=== PATIENT | female | born 1990 | race Hispanic/Latino ===

== ENCOUNTER 2017-01-19 18:00 | Emergency (ER) | payer SELFPAY ==
[2017-01-19] MEDS ORDERED: Ondansetron HCl/PF 4 MG/2 ML Vial ONE ×2 (18:37→18:38)
[2017-01-19 18:39] LABS: #Basophils 0.1 thou/uL (0.0-0.2); #Eosinphils 0.1 thou/uL (0.0-0.7); #Lymphocytes 1.7 thou/uL (1.20-3.40); #Monocytes 0.6 thou/uL (0.11-0.59); #Neutrophils 4.7 thou/uL (1.40-6.50); %Basophils 0.7 % (0.0-1.0); %Eosinophils 1.1 % (0.0-10.0); %Lymphocytes 23.2 % (21.0-51.0); %Monocytes 9.1 % (0.0-10.0); Hematocrit 38.6 % (36.0-47.0); Mean Platelet Volume 6.7 fL (7.4-10.4); Red Blood Cell (RBC) Count 4.45 mill/uL (4.20-5.40); White Blood Cell (WBC) Count 7.1 thou/uL (4.8-10.8)
[2017-01-19 18:46] LABS: ALT (SGPT) 41 U/L (8-55); AST (SGOT) 33 U/L (5-34); Alkaline Phosphatase 82 U/L (40-150); Anion Gap 12 mmol/L (10-20); BUN (Urea Nitrogen) 7 mg/dL (7.0-18.7); Bilirubin, Total 0.3 mg/dL (0.2-1.2); Calc. Creatinine Clearance 0 mL/min (70-130); Calcium 9.1 mg/dL (7.8-10.44); Carbon Dioxide 27 mmol/L (22-29); Chloride 102 mmol/L (98-107); Estimated GFR-MDRD Greater than 90; Globulin 2.8 g/dL (2.4-3.5); Lipase 26 U/L (8-78); Protein, Total 7.2 g/dL (6.0-8.3)
[2017-01-19 20:38] LABS: Bilirubin Small (Negative); Blood, Urine Large (Negative); Glucose, Urine (Dipstick) Negative (Negative); Ketone, Urine Negative (Negative); Nitrite Positive (Negative); Protein, Urine (Dipstick) Trace mg/dL (Neg-Trace)
[2017-01-19 20:46] LABS: Bacteria/HPF 4+ HPF (None Seen); Hyaline Casts/LPF 4-6 HYALINE CAST LPF (0-3 Hyaline); RBC/HPF GREATER THAN 50-TNTC HPF (0-3); Squamous Epithelial 0-3 HPF (0-3); WBC/HPF 21-50 HPF (0-3)
== END 2017-01-19 22:09 | disposition home or self-care (01) ==
LOC: ERS 18:00
DX: N39.0 Urinary tract infection, site not specified (principal); D64.9 Anemia, unspecified
CPT/HCPCS: 80053; 81003; 81015; 83690; 84703; 85025; 87081; 87430; 96361; 96374; J2405

== ENCOUNTER 2017-02-03 21:12 | Emergency (ER) | payer SELFPAY ==
[2017-02-03 23:48] LABS: Bilirubin Negative (Negative); Blood, Urine Negative (Negative); Glucose, Urine (Dipstick) Negative (Negative); Ketone, Urine Negative (Negative); Nitrite Positive (Negative); Protein, Urine (Dipstick) Negative (Neg-Trace)
[2017-02-03 23:51] LABS: Bacteria/HPF 4+ HPF (None Seen); Hyaline Casts/LPF 0-3 HYALINE CAST LPF (0-3 Hyaline)
[2017-02-04] MEDS ORDERED: Ondansetron ODT 4 MG TAB ONE (00:24)
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
== END 2017-02-04 00:36 | disposition home or self-care (01) ==
LOC: ERS 21:12
DX: R05 Cough (principal); R11.2 Nausea with vomiting, unspecified; R09.81 Nasal congestion; D50.9 Iron deficiency anemia, unspecified
CPT/HCPCS: 71020; 81003; 81015; 81025; Q0162

== ENCOUNTER 2018-01-08 09:11 | Emergency (ER) | payer SELFPAY ==
[2018-01-08 09:54] LABS: #Basophils 0.1 thou/uL (0.0-0.2); #Eosinphils 0.1 thou/uL (0.0-0.7); #Lymphocytes 1.5 thou/uL (1.20-3.40); #Monocytes 0.4 thou/uL (0.11-0.59); #Neutrophils 3.7 thou/uL (1.40-6.50); %Basophils 1.3 % (0.0-1.0); %Eosinophils 1.2 % (0.0-10.0); %Lymphocytes 26.7 % (21.0-51.0); %Monocytes 6.5 % (0.0-10.0); %Neutrophils 64.2 % (42.0-75.0); Hemoglobin 13.4 g/dL (12.0-16.0); Mean Corpuscular HGB CONC 33.7 g/dL (32.0-36.0); Mean Corpuscular Hemoglobin 28.8 pg (27.0-31.0); Mean Corpuscular Volume 85.2 fL (78.0-98.0); Mean Platelet Volume 6.8 fL (7.4-10.4); Platelet Count 325 thou/uL (130-400); RBC Distribution Width 11.8 % (11.5-14.5); Red Blood Cell (RBC) Count 4.67 mill/uL (4.20-5.40); White Blood Cell (WBC) Count 5.7 thou/uL (4.8-10.8)
[2018-01-08 10:19] LABS: Bilirubin Negative (Negative); Blood, Urine Negative (Negative); Glucose, Urine (Dipstick) Negative (Negative); Leukocyte Negative (Negative); Nitrite Positive (Negative); Protein, Urine (Dipstick) Negative (Neg-Trace); Specific Gravity, Urine 1.025 (1.005-1.030); Urobilinogen 0.2 mg/dL (0.2-1.0); pH, Urine 6.5 (5.0-9.0)
[2018-01-08 10:21] LABS: Bacteria/HPF 4+ HPF (None Seen); Clarity Hazy (Clear); Hyaline Casts/LPF 0-3 HYALINE CAST LPF (0-3 Hyaline); Pathc Cast-AUWi Flag 0.87 (0-2.49)
[2018-01-08 10:21] LABS: ALT (SGPT) 38 U/L (8-55); AST (SGOT) 26 U/L (5-34); Albumin 4.6 g/dL (3.5-5.0); Alkaline Phosphatase 85 U/L (40-150); Anion Gap 12 mmol/L (10-20); BUN (Urea Nitrogen) 12 mg/dL (7.0-18.7); Bilirubin, Total Less than 0.2 mg/dL (0.2-1.2); Calc. Creatinine Clearance 0 mL/min (70-130); Calcium 9.5 mg/dL (7.8-10.44); Carbon Dioxide 27 mmol/L (22-29); Chloride 104 mmol/L (98-107); Estimated GFR-MDRD 79; Globulin 2.9 g/dL (2.4-3.5); Glucose 120 mg/dL (70-105); Lipase 34 U/L (8-78); Protein, Total 7.5 g/dL (6.0-8.3); Sodium 139 mmol/L (136-145)
[2018-01-08 10:24] LABS: Pregnancy Test - Urine (BHCG) Negative (Negative); Pregu Control Background? CLEAR/WHITE (CLR/WHITE); Pregu Control Bar Appear? YES (CONTROL BAR); Specific Gravity 1.025 (1.002-1.036)
[2018-01-08 10:31] LABS: RBC/HPF None Seen HPF (0-3)
== END 2018-01-08 11:30 | disposition home or self-care (01) ==
LOC: ERS 09:11
DX: N39.0 Urinary tract infection, site not specified (principal); D50.9 Iron deficiency anemia, unspecified
CPT/HCPCS: 36415; 80053; 81003; 81015; 81025; 83690; 84702; 85025

== ENCOUNTER 2019-07-15 19:11 | Emergency (ER) | payer OTHER, SELFPAY ==
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
== END 2019-07-15 21:41 | disposition home or self-care (01) ==
LOC: ERS 19:11
DX: S00.03XA Contusion of scalp, initial encounter (principal); S90.31XA Contusion of right foot, initial encounter; D50.9 Iron deficiency anemia, unspecified; Z87.891 Personal history of nicotine dependence; V89.2XXA Person injured in unspecified motor-vehicle accident, traffic, initial encounter
CPT/HCPCS: 70450

== ENCOUNTER 2020-06-17 17:30 | Emergency (ER) | payer SELFPAY ==
[2020-06-17 19:30] LABS: Bacteria/HPF 2+ HPF (None Seen); Bilirubin Negative (Negative); Blood, Urine Negative (Negative); Clarity Turbid (Clear); Glucose, Urine (Dipstick) Normal (Negative); Ketone, Urine Negative (Negative); Leukocyte Negative Leu/uL (Negative); Nitrite 1+ (Negative); Protein, Urine (Dipstick) 20 mg/dL (Neg-Trace); Specific Gravity, Urine 1.026 (1.002-1.036); pH, Urine 5.5 (5.0-9.0)
[2020-06-17 19:36] LABS: Pregnancy Test - Urine (BHCG) Negative (Negative); Pregu Control Background? CLEAR/WHITE (CLR/WHITE); Pregu Control Bar Appear? YES (CONTROL BAR); Specific Gravity 1.023 (1.002-1.036)
[2020-06-17 19:38] LABS: Calcium Oxalate Crystals 2+ HPF (None Seen)
[2020-06-20 23:03] LABS: Chlamydia by PCR Not Detected (NotDetected); GC by PCR Not Detected (NotDetected)
== END 2020-06-17 21:57 | disposition home or self-care (01) ==
LOC: ERS 17:30
DX: T83.32XA Displacement of intrauterine contraceptive device, initial encounter (principal); N39.0 Urinary tract infection, site not specified; D50.9 Iron deficiency anemia, unspecified; F17.210 Nicotine dependence, cigarettes, uncomplicated
CPT/HCPCS: 76856; 81003; 81015; 81025; 87077; 87086; 87186; 87480; 87491; 87510; 87591; 87660

== ENCOUNTER 2020-12-13 08:55 | Inpatient (IN) | payer SELFPAY ==
[2020-12-13] MEDS ORDERED: Mag-Al 1200 mg/1200 mg/30 ML UDCUP ONE (09:26)
[2020-12-13] MEDS ORDERED: Ondansetron ODT 4 MG TAB ONE (09:26)
[2020-12-13] MEDS ORDERED: Ondansetron PF 4 MG/2 ML Vial ONE ×2 (09:26→13:18)
[2020-12-13] MEDS ORDERED: Lidocaine Viscous Sol 2% 15 ml UD Cup ONE (09:26)
[2020-12-13 09:50] LABS: #Lymphocytes 1.2 thou/uL (1.20-3.40); #Monocytes 0.5 thou/uL (0.11-0.59); #Neutrophils 9.1 thou/uL (1.40-6.50); %Basophils 0.2 % (0.0-1.0); %Eosinophils 0.3 % (0.0-10.0); %Lymphocytes 10.8 % (21.0-51.0); %Monocytes 4.5 % (0.0-10.0); %Neutrophils 84.1 % (42.0-75.0); Hemoglobin 13.9 g/dL (12.0-16.0); Mean Corpuscular HGB CONC 33.5 g/dL (32.0-36.0); Mean Corpuscular Volume 86.7 fL (78.0-98.0); Mean Platelet Volume 7.1 fL (7.4-10.4); Platelet Count 428 thou/uL (130-400); RBC Distribution Width 11.9 % (11.5-14.5); Red Blood Cell (RBC) Count 4.78 mill/uL (4.20-5.40); White Blood Cell (WBC) Count 10.8 thou/uL (4.8-10.8)
[2020-12-13 10:12] LABS: Anion Gap 16 mmol/L (10-20); BUN (Urea Nitrogen) 10 mg/dL (7.0-18.7); Calc. Creatinine Clearance 0 mL/min (70-130); Carbon Dioxide 24 mmol/L (22-29); Chloride 103 mmol/L (98-107); Potassium 3.7 mmol/L (3.5-5.1); Sodium 139 mmol/L (136-145)
[2020-12-13 10:13] LABS: ALT (SGPT) 520 U/L (8-55); AST (SGOT) 700 U/L (5-34); Alkaline Phosphatase 212 U/L (40-110); Bilirubin, Total 2.5 mg/dL (0.2-1.2); Calcium 9.1 mg/dL (7.8-10.44); Globulin 2.2 g/dL (2.4-3.5); Glucose 290 mg/dL (70-105); Protein, Total 6.2 g/dL (6.0-8.3)
[2020-12-13 10:29] LABS: Lipase 5680 U/L (8-78)
[2020-12-13] MEDS ORDERED: Morphine 4 MG/ML VIAL ONE ×2 (10:34→11:24)
[2020-12-13] MEDS ORDERED: Levofloxacin 500 mg/D5W 100 ml Premix Bag ONE (11:23)
[2020-12-13] MEDS ORDERED: Ketorolac Tromethamine 30 MG/ML VIAL ONE (11:24)
[2020-12-13] MEDS ORDERED: hydrALAZINE 20 MG/ML VIAL SLOW IVP PRN (11:40)
[2020-12-13] MEDS ORDERED: Ondansetron ODT 4 MG TAB PO PRN (11:40)
[2020-12-13] MEDS ORDERED: Lactated Ringer's 1,000 ML IV SCH (11:45)
[2020-12-13] MEDS ORDERED: Ketorolac Tromethamine 30 MG/ML VIAL IVP SCH (11:45)
[2020-12-13] MEDS ORDERED: Scopolamine 1.5 mg/72 hour Patch TD SCH (12:00)
[2020-12-13 13:54] LABS: SARS-CoV-2 NAA Rapid Test Not Detected (NotDetected)
[2020-12-13 14:25] VITALS: BMI 34.6
[2020-12-13] MEDS ORDERED: Morphine 4 MG/ML VIAL SLOW IVP PRN (15:09)
[2020-12-13] MEDS: Lactated Ringer's 1,000 ML IV SCH ×3 (16:00→22:10)
[2020-12-13] MEDS: Ketorolac Tromethamine 30 MG/ML VIAL IVP PRN ×2 (16:05→22:03)
[2020-12-13] MEDS: Morphine 4 MG/ML VIAL SLOW IVP PRN ×2 (17:33→22:04)
[2020-12-13] MEDS: Ondansetron PF 4 MG/2 ML Vial IVP PRN (17:35)
[2020-12-13] MEDS ORDERED: Famotidine 20 MG TAB PO SCH (21:00)
[2020-12-13] MEDS ORDERED: Enoxaparin Sodium 40 MG/0.4 ML SYRINGE SC SCH (21:00)
[2020-12-13] MEDS: Famotidine/PF 20 mg/2ml Vial SLOW IVP SCH (22:03)
[2020-12-14] MEDS: Lactated Ringer's 1,000 ML IV SCH (05:59)
[2020-12-14 06:21] LABS: #Lymphocytes 0.9 thou/uL (1.20-3.40); #Monocytes 0.6 thou/uL (0.11-0.59); #Neutrophils 9.1 thou/uL (1.40-6.50); %Basophils 0.3 % (0.0-1.0); %Eosinophils 0.2 % (0.0-10.0); %Lymphocytes 8.5 % (21.0-51.0); %Monocytes 5.4 % (0.0-10.0); %Neutrophils 85.6 % (42.0-75.0); Hemoglobin 13.3 g/dL (12.0-16.0); Mean Corpuscular HGB CONC 33.3 g/dL (32.0-36.0); Mean Corpuscular Volume 87.1 fL (78.0-98.0); Platelet Count 338 thou/uL (130-400); RBC Distribution Width 12.1 % (11.5-14.5); Red Blood Cell (RBC) Count 4.61 mill/uL (4.20-5.40); White Blood Cell (WBC) Count 10.6 thou/uL (4.8-10.8)
[2020-12-14 06:28] LABS: ALT (SGPT) 341 U/L (8-55); AST (SGOT) 165 U/L (5-34); Albumin 3.2 g/dL (3.5-5.0); Alkaline Phosphatase 181 U/L (40-110); Anion Gap 10 mmol/L (10-20); BUN (Urea Nitrogen) 9 mg/dL (7.0-18.7); Calc. Creatinine Clearance 143 mL/min (70-130); Calcium 8.3 mg/dL (7.8-10.44); Carbon Dioxide 27 mmol/L (22-29); Chloride 106 mmol/L (98-107); Globulin 1.9 g/dL (2.4-3.5); Glucose 102 mg/dL (70-105); Potassium 3.7 mmol/L (3.5-5.1); Protein, Total 5.1 g/dL (6.0-8.3); Sodium 139 mmol/L (136-145)
[2020-12-14 06:41] LABS: Lipase 2298 U/L (8-78)
[2020-12-14] MEDS: Ondansetron PF 4 MG/2 ML Vial IVP PRN (07:12)
[2020-12-14] MEDS: Ketorolac Tromethamine 30 MG/ML VIAL IVP PRN (07:12)
[2020-12-14] MEDS: Morphine 4 MG/ML VIAL SLOW IVP PRN (07:13)
[2020-12-14] MEDS ORDERED: Lidocaine 1% w/Epinephrine 1:100K 20 ML VIAL ONE (07:19)
[2020-12-14] MEDS ORDERED: Bupivacaine 0.25% HCL 30 ML VIAL ONE (07:19)
[2020-12-14] MEDS ORDERED: Iothalamate Meglumine 60% 50 ML VIAL FS ONE (07:19)
[2020-12-14] MEDS ORDERED: Ketamine 50 MG/ML (10ML VIAL) ONE (07:56)
[2020-12-14] MEDS ORDERED: Midazolam HCl 2 mg/2 ml Vial ONE (07:56)
[2020-12-14] MEDS ORDERED: Fentanyl 100 MCG/2 ML VIAL ONE ×2 (07:56→09:39)
[2020-12-14] MEDS ORDERED: Phenylephrine 10 MG/ML VIAL ONE (07:56)
[2020-12-14] MEDS ORDERED: Dexmedetomidine 200 MCG/2 ML VIAL ONE (07:56)
[2020-12-14] MEDS ORDERED: Glycopyrrolate 0.2 MG/ML 5 ML SYRINGE ONE (08:25)
[2020-12-14] MEDS ORDERED: Succinylcholine 200 MG/10 ml SYRINGE FS ONE (08:25)
[2020-12-14] MEDS ORDERED: Ondansetron PF 4 MG/2 ML Vial ONE (08:25)
[2020-12-14] MEDS ORDERED: PROPOFOL 200 MG/20 ML VIAL ONE (08:25)
[2020-12-14] MEDS ORDERED: Lidocaine 1% PF 5 ML VIAL ONE (08:25)
[2020-12-14] MEDS ORDERED: PHENYLEPHRINE-NS 100 MCG/ML 10 ML SYRINGE ONE (08:25)
[2020-12-14] MEDS ORDERED: Rocuronium Bromide 10 MG/ML (10ML VIAL) ONE (08:25)
[2020-12-14] MEDS ORDERED: Esmolol 100 MG/10 ML VIAL ONE (08:25)
[2020-12-14] MEDS ORDERED: Dexamethasone 20 MG/5 ML VIAL ONE (08:25)
[2020-12-14] MEDS: Famotidine/PF 20 mg/2ml Vial SLOW IVP SCH (08:32)
[2020-12-14] MEDS ORDERED: Promethazine HCl 25 MG/ML VIAL IVPB PRN (09:32)
[2020-12-14] MEDS ORDERED: HYDROmorphone 2 MG/ML VIAL SLOW IVP PRN (09:32)
[2020-12-14] MEDS ORDERED: Promethazine HCl 25 MG/ML VIAL IM PRN (09:32)
[2020-12-14] MEDS ORDERED: traMADol HCl 50 MG TAB PO PRN (09:53)
[2020-12-14] MEDS ORDERED: Ibuprofen 600 MG TAB PO PRN (09:53)
[2020-12-14] MEDS ORDERED: Acetaminophen 500 MG TAB PO PRN (09:53)
[2020-12-14] MEDS ORDERED: Lactated Ringer's 1,000 ML IV SCH (09:55)
[2020-12-14 17:14] VITALS: BP 105/71; TEMP 98.3
== END 2020-12-14 17:40 | disposition home or self-care (01) | DRG 418 ==
LOC: ERS 08:55 → SURG A 11:40
PROVIDERS: ADMIT Specialist; ATTEND Specialist
PROC: 0FT44ZZ Resection of Gallbladder, Percutaneous Endoscopic Approach (ICD-10-PCS; principal; 2020-12-14)
PROC: BF131ZZ Fluoroscopy of Gallbladder and Bile Ducts using Low Osmolar Contrast (ICD-10-PCS; 2020-12-14)
DX: K85.90 Acute pancreatitis without necrosis or infection, unspecified (principal); K80.10 Calculus of gallbladder with chronic cholecystitis without obstruction; Z88.1 Allergy status to other antibiotic agents; Z88.0 Allergy status to penicillin
CPT/HCPCS: 36415; 47531; 47532; 76705; 80053; 82150; 83690; 85025; 88304; 96365; 96372; 96375; 96376; J0500; J1100; J1610; J1650; J1885; J1956; J2250; J2270; J2370; J2405; J2704; J3010; J7120; Q0162; Q9961; S0020; S0028; U0002

== ENCOUNTER 2021-02-08 20:59 | Emergency (ER) | payer SELFPAY ==
[2021-02-08] MEDS ORDERED: Acetaminophen 500 MG TAB ONE (22:46)
== END 2021-02-08 22:48 | disposition home or self-care (01) ==
LOC: ERS 20:59
DX: S93.502A Unspecified sprain of left great toe, initial encounter (principal); W22.8XXA Striking against or struck by other objects, initial encounter; D50.9 Iron deficiency anemia, unspecified

== ENCOUNTER 2021-03-13 13:06 | Emergency (ER) | payer SELFPAY ==
[2021-03-13 20:32] LABS: SARS-CoV-2 PCR by NAA DETECTED (NotDetected)
== END 2021-03-13 13:40 | disposition home or self-care (01) ==
LOC: ERS 13:06
DX: U07.1 COVID-19 (principal); D50.9 Iron deficiency anemia, unspecified
CPT/HCPCS: 99283; U0003; U0005

== ENCOUNTER 2021-06-17 23:52 | Emergency (ER) | payer OTHER | END 2021-06-18 00:46 | disposition home or self-care (01) | LOC: ERS 23:52 | DX: K03.81 Cracked tooth (principal); K02.9 Dental caries, unspecified; D50.9 Iron deficiency anemia, unspecified | CPT/HCPCS: 99283 ==

== ENCOUNTER 2021-08-19 18:21 | Emergency (ER) | payer OTHER, SELFPAY ==
[2021-08-19] MEDS ORDERED: Lidocaine 1% w/Epinephrine 1:100K 20 ML VIAL ONE (19:49)
[2021-08-19] MEDS ORDERED: Boostrix 0.5 ML (Tdap) VIAL ONE (21:38)
== END 2021-08-19 22:15 | disposition home or self-care (01) ==
LOC: ERS 18:21
DX: S81.012A Laceration without foreign body, left knee, initial encounter (principal); F17.290 Nicotine dependence, other tobacco product, uncomplicated; V87.8XXA Person injured in other specified noncollision transport accidents involving motor vehicle (traffic), initial encounter
CPT/HCPCS: 12002; 90471; 90715

== ENCOUNTER 2021-08-25 23:17 | Emergency (ER) | payer SELFPAY | END 2021-08-26 02:09 | disposition home or self-care (01) | LOC: ERS 23:17 | DX: L03.115 Cellulitis of right lower limb (principal) | CPT/HCPCS: 99282 ==

== ENCOUNTER 2021-09-02 18:29 | Emergency (ER) | payer SELFPAY | END 2021-09-02 19:00 | disposition home or self-care (01) | LOC: ERS 18:29 | DX: S81.012D Laceration without foreign body, left knee, subsequent encounter (principal); Z87.891 Personal history of nicotine dependence; Z79.899 Other long term (current) drug therapy; X58.XXXD Exposure to other specified factors, subsequent encounter ==

== ENCOUNTER 2021-09-10 18:11 | Emergency (ER) | payer SELFPAY | END 2021-09-10 18:50 | disposition home or self-care (01) | LOC: ERS 18:11 | DX: S81.012D Laceration without foreign body, left knee, subsequent encounter (principal) ==

== ENCOUNTER 2022-01-03 16:21 | Emergency (ER) | payer SELFPAY ==
[2022-01-03] MEDS ORDERED: Acetaminophen 500 MG TAB ONE (17:36)
[2022-01-03] MEDS ORDERED: Ibuprofen 800 MG TAB ONE (18:33)
== END 2022-01-03 19:02 | disposition home or self-care (01) ==
LOC: ERS 16:21
DX: B34.9 Viral infection, unspecified (principal); Z87.891 Personal history of nicotine dependence
CPT/HCPCS: 87804; 99283

== ENCOUNTER 2022-02-09 11:05 | Emergency (ER) | payer SELFPAY ==
[2022-02-09] MEDS ORDERED: Ondansetron ODT 4 MG TAB ONE (11:51)
[2022-02-09 12:42] LABS: SARS-CoV-2 NAA Rapid Test Not Detected (NotDetected)
[2022-02-09 13:21] LABS: Pregnancy Test - Urine (BHCG) Negative (Negative); Pregu Control Background? CLEAR/WHITE (CLR/WHITE); Pregu Control Bar Appear? YES (CONTROL BAR); Specific Gravity 1.015 (1.002-1.036)
== END 2022-02-09 14:22 | disposition home or self-care (01) ==
LOC: ERS 11:05
DX: J20.9 Acute bronchitis, unspecified (principal); J45.909 Unspecified asthma, uncomplicated; Z20.822 Contact with and (suspected) exposure to COVID-19; Z87.891 Personal history of nicotine dependence
CPT/HCPCS: 71045; 81025; Q0162

== ENCOUNTER 2022-09-19 04:10 | Emergency (ER) | payer SELFPAY ==
[2022-09-19] MEDS ORDERED: Ibuprofen 800 MG TAB ONE (04:48)
== END 2022-09-19 04:55 | disposition home or self-care (01) ==
LOC: ERS 04:10
DX: S90.111A Contusion of right great toe without damage to nail, initial encounter (principal); W22.09XA Striking against other stationary object, initial encounter; Z87.891 Personal history of nicotine dependence

== ENCOUNTER 2022-10-15 15:01 | Emergency (ER) | payer BC, SELFPAY ==
[~2022-10-15 15:01] MED LIST: Iopamidol-370 76% 500 ML MDV (1 ML CHARGE) ONE
[2022-10-15 15:48] LABS: #Eosinphils 0.1 thou/uL (0.0-0.7); #Monocytes 0.3 thou/uL (0.11-0.59); %Basophils 0.4 % (0.0-1.0); %Eosinophils 1.6 % (0.0-10.0); %Lymphocytes 18.5 % (21.0-51.0); %Monocytes 4.9 % (0.0-10.0); Hematocrit 37.6 % (36.0-47.0); Hemoglobin 12.5 g/dL (12.0-16.0); Mean Corpuscular HGB CONC 33.2 g/dL (32.0-36.0); Mean Corpuscular Hemoglobin 28.5 pg (27.0-31.0); Mean Corpuscular Volume 85.8 fl (78.0-98.0); Mean Platelet Volume 9.2 fL (7.4-10.4); Platelet Count 339 10x3/uL (130-400); RBC Distribution Width 13.4 % (11.5-14.5); Red Blood Cell (RBC) Count 4.38 mill/uL (4.20-5.40); White Blood Cell (WBC) Count 6.7 10x3/uL (4.8-10.8)
[2022-10-15 15:55] LABS: BHCG - Serum Negative (NEGATIVE); Pregs Control Background? CLEAR/WHITE (CLR/WHITE); Pregs Control Bar Appear? YES (CONTROL BAR)
[2022-10-15 16:12] LABS: ALT (SGPT) 18 U/L (8-55); AST (SGOT) 16 U/L (5-34); Albumin 4.1 g/dL (3.5-5.0); Alkaline Phosphatase 85 U/L (40-110); Anion Gap 13 mmol/L (10-20); BUN (Urea Nitrogen) 7 mg/dL (7.0-18.7); Bilirubin, Total 0.2 mg/dL (0.2-1.2); Calc. Creatinine Clearance 0 mL/min (70-130); Calcium 8.7 mg/dL (7.8-10.44); Carbon Dioxide 24 mmol/L (22-29); Chloride 106 mmol/L (98-107); Estimated GFR 104; Globulin 2.3 g/dL (2.4-3.5); Glucose 112 mg/dL (70-105); Lipase 27 U/L (8-78); Potassium 3.4 mmol/L (3.5-5.1); Protein, Total 6.4 g/dL (6.0-8.3); Sodium 140 mmol/L (136-145)
[2022-10-15] MEDS ORDERED: Ketorolac Tromethamine 30 MG/ML VIAL ONE (16:15)
[2022-10-15 16:45] LABS: Bacteria/HPF 2+ HPF (None Seen); Bilirubin Negative (Negative); Blood, Urine Negative (Negative); CAUTI Indications for Culture Pelvic or flank pain; Clarity Turbid (Clear); Glucose, Urine (Dipstick) Normal (Negative); Ketone, Urine Negative (Negative); Leukocyte 500 Leu/uL (Negative); Nitrite 2+ (Negative); Protein, Urine (Dipstick) 30 mg/dL (Neg-Trace); RBC/HPF 0-3 HPF (0-3); Specific Gravity, Urine 1.024 (1.002-1.036); Squamous Epithelial 0-3 HPF (0-3); Urobilinogen Normal mg/dL (Less than 2); pH, Urine 6.5 (5.0-9.0)
[2022-10-15 16:51] LABS: Urine Culture Reflex Yes Yes
== END 2022-10-15 17:41 | disposition home or self-care (01) ==
LOC: ERS 15:01
DX: N39.0 Urinary tract infection, site not specified (principal); Z87.891 Personal history of nicotine dependence
CPT/HCPCS: 36415; 74177; 80053; 81001; 83690; 84703; 85025; 87077; 87086; 87186; 96374; J1885; Q9967

== ENCOUNTER 2022-10-19 23:20 | Emergency (ER) | payer BC ==
[2022-10-19] MEDS ORDERED: Acetaminophen 500 MG TAB ONE (23:57)
[2022-10-20 00:16] LABS: #Eosinphils 0.1 thou/uL (0.0-0.7); #Monocytes 0.5 thou/uL (0.11-0.59); #Neutrophils 4.7 thou/uL (1.40-6.50); %Basophils 0.3 % (0.0-1.0); %Eosinophils 1.5 % (0.0-10.0); %Lymphocytes 22.6 % (21.0-51.0); %Monocytes 6.5 % (0.0-10.0); %Neutrophils 68.7 % (42.0-75.0); Hematocrit 38.4 % (36.0-47.0); Hemoglobin 12.6 g/dL (12.0-16.0); Mean Corpuscular HGB CONC 32.8 g/dL (32.0-36.0); Mean Corpuscular Hemoglobin 28.3 pg (27.0-31.0); Mean Corpuscular Volume 86.3 fl (78.0-98.0); Mean Platelet Volume 9.1 fL (7.4-10.4); Platelet Count 332 10x3/uL (130-400); RBC Distribution Width 13.6 % (11.5-14.5); Red Blood Cell (RBC) Count 4.45 mill/uL (4.20-5.40); White Blood Cell (WBC) Count 6.9 10x3/uL (4.8-10.8)
[2022-10-20 00:39] LABS: ALT (SGPT) 15 U/L (8-55); AST (SGOT) 16 U/L (5-34); Albumin 3.9 g/dL (3.5-5.0); Alkaline Phosphatase 93 U/L (40-110); Anion Gap 13 mmol/L (10-20); BUN (Urea Nitrogen) 8 mg/dL (7.0-18.7); Bilirubin, Total 0.2 mg/dL (0.2-1.2); Calc. Creatinine Clearance 0 mL/min (70-130); Calcium 8.8 mg/dL (7.8-10.44); Carbon Dioxide 24 mmol/L (22-29); Chloride 104 mmol/L (98-107); Estimated GFR 98; Globulin 2.7 g/dL (2.4-3.5); Glucose 140 mg/dL (70-105); Potassium 3.6 mmol/L (3.5-5.1); Protein, Total 6.6 g/dL (6.0-8.3); Sodium 137 mmol/L (136-145)
[2022-10-20 00:52] LABS: Bacteria/HPF 2+ HPF (None Seen); Bilirubin Negative (Negative); Blood, Urine Negative (Negative); CAUTI Indications for Culture Dysuria,urgency,freq; Clarity Turbid (Clear); Glucose, Urine (Dipstick) Normal (Negative); Ketone, Urine Negative (Negative); Leukocyte 500 Leu/uL (Negative); Nitrite 1+ (Negative); Protein, Urine (Dipstick) Negative (Neg-Trace); RBC/HPF 0-3 HPF (0-3); Specific Gravity, Urine 1.018 (1.002-1.036); Squamous Epithelial 0-3 HPF (0-3); Urobilinogen Normal mg/dL (Less than 2); WBC/HPF Greater than 50 HPF (0-3)
[2022-10-20 00:53] LABS: Pregnancy Test - Urine (BHCG) Negative (Negative); Urine Culture Reflex Yes Yes
[2022-10-20 00:54] LABS: Pregu Control Background? CLEAR/WHITE (CLR/WHITE); Pregu Control Bar Appear? YES (CONTROL BAR); Specific Gravity 1.018 (1.002-1.036)
[2022-10-20] MEDS ORDERED: cefTRIAXone (ROCEPHIN) 1 GM VIAL ONE (01:20)
== END 2022-10-20 02:11 | disposition home or self-care (01) ==
LOC: ERS 23:20
DX: N10 Acute pyelonephritis (principal); R51.9 Headache, unspecified; R42 Dizziness and giddiness; Z87.891 Personal history of nicotine dependence
CPT/HCPCS: 70450; 80053; 81001; 81025; 85025; 87077; 87086; 87186; 93005; 96365; J0696

== ENCOUNTER 2022-12-27 20:31 | Emergency (ER) | payer BC ==
[2022-12-27 20:51] LABS: Bacteria/HPF None Seen HPF (None Seen); Bilirubin Negative (Negative); Blood, Urine Negative (Negative); CAUTI Indications for Culture Dysuria,urgency,freq; Clarity Clear (Clear); Glucose, Urine (Dipstick) Normal (Negative); Ketone, Urine Negative (Negative); Leukocyte 250 Leu/uL (Negative); Nitrite Negative (Negative); Pregnancy Test - Urine (BHCG) Negative (Negative); Pregu Control Background? CLEAR/WHITE (CLR/WHITE); Pregu Control Bar Appear? YES (CONTROL BAR); Protein, Urine (Dipstick) Negative (Neg-Trace); RBC/HPF 0-3 HPF (0-3); Specific Gravity 1.011 (1.002-1.036); Specific Gravity, Urine 1.011 (1.002-1.036); Squamous Epithelial 0-3 HPF (0-3); Urobilinogen Normal mg/dL (Less than 2); pH, Urine 6.5 (5.0-9.0)
[2022-12-27 20:52] LABS: Urine Culture Reflex No No
[2022-12-28] MEDS ORDERED: Ketorolac Tromethamine 30 MG/ML VIAL ONE (00:35)
[2022-12-28 13:46] LABS: Chlamydia by PCR, Vaginal Swab Not Detected (NotDetected); GC by PCR, Vaginal Swab Not Detected (NotDetected)
== END 2022-12-28 03:34 | disposition home or self-care (01) ==
LOC: ERS 20:31
DX: R30.0 Dysuria (principal); Z87.891 Personal history of nicotine dependence
CPT/HCPCS: 81001; 81025; 87480; 87491; 87510; 87591; 87660; 96372; 99283; J1885

== ENCOUNTER 2024-02-13 21:07 | Emergency (ER) | payer BC, SELFPAY ==
[2024-02-13] MEDS ORDERED: Ondansetron ODT 4 MG TAB ONE (21:53)
[2024-02-13] MEDS ORDERED: Ibuprofen 200 MG TAB ONE (21:53)
[2024-02-14] MEDS ORDERED: Dexamethasone 10 MG/ML VIAL ONE (00:06)
== END 2024-02-14 00:15 | disposition home or self-care (01) ==
LOC: ERS 21:07
DX: J02.0 Streptococcal pharyngitis (principal); Z87.891 Personal history of nicotine dependence
CPT/HCPCS: 87428; 87430; 99283; J1100; Q0162

== ENCOUNTER 2024-11-15 04:37 | Emergency (ER) | payer SELFPAY ==
[2024-11-15] MEDS ORDERED: Ondansetron PF 4 MG/2 ML Vial ONE (06:38)
[2024-11-15 07:15] LABS: BHCG - Serum Negative (NEGATIVE); Pregs Control Background? CLEAR/WHITE (CLR/WHITE); Pregs Control Bar Appear? YES (CONTROL BAR)
[2024-11-15] MEDS ORDERED: Ketorolac Tromethamine 30 MG (1 mL) VIAL ONE (07:24)
[2024-11-15 07:28] LABS: MONO NEGATIVE CONTROL ZONE White (Negative) (White); MONO POSITIVE CONTROL Pink Line (Positive) (PINK/RED); Mononucleosis NEGATIVE (NEGATIVE)
== END 2024-11-15 07:40 | disposition home or self-care (01) ==
LOC: ERS 04:37
DX: B34.9 Viral infection, unspecified (principal); Z87.891 Personal history of nicotine dependence
CPT/HCPCS: 84703; 86308; 87081; 87428; 87430; 96374; J1885; J2405